=== PATIENT | male | born 1955 | race Caucasian/White ===

== ENCOUNTER 2019-12-17 09:19 | Outpatient (CLI) | payer MEDICARE ==
--- NOTE | 2019-12-17 11:45 | MRI ---
MR of the left shoulder without contrast INDICATION: Left shoulder pain. Rotator cuff syndrome of the left shoulder TECHNIQUE: Sagittal T1, axial and coronal PD fat sat, sagittal and coronal T2 fat sat images were obt ained of the left shoulder. COMPARISON: None. FINDINGS: Motion artifact limits image detail. Rotator cuff: There is a full-thickness tear involving the anterior to mid supraspinatus at the footp rint measuring 1.3 x 1.4 cm. There is partial thickness intratendinous tear extension into the posterior supraspinatus and anterior infraspinatus at the footprint with intratendinous delamination extending up the anterior aspect of the infraspinatus tendon best seen on image 10 of series 5. Glenohumeral joint: Articular cartilage is intact. Glenoid labrum: Intact Biceps tendon and biceps anchor: There is moderate tendinosis of the intra-articular biceps tendon wi th a partial thickness split tear involving the long head of the biceps tendon at the level of the rotator interval and proximal bicipital groove. Acromion clavicular joint: Moderate AC joint osteoarthrosis Subacromial subdeltoid space: No appreciable fluid. Axillary region: No lymphadenopathy. Surrounding shoulder musculature: Normal. No evidence of atrophy or strain. IMPRESSION: 1. Full-thickness tear of the anterior mid supraspinatus at the footprint with intratendinous tear ex tension into the posterior supraspinatus and anterior infraspinatus at the footprint. The intratendinous tear does have a delaminating component and extends up the mid aspect of the anterior infraspinatus tendon. 2. Moderate intra-articular long head of the biceps tendinosis with partial-thickness split tear. 3. Moderate AC joint osteoarthrosis.
== END 2019-12-17 09:20 | disposition home or self-care (01) ==
LOC: BICMRI 09:19
PROVIDERS: ATTEND Family Medicine
DX: M75.102 Unspecified rotator cuff tear or rupture of left shoulder, not specified as traumatic (principal); M75.122 Complete rotator cuff tear or rupture of left shoulder, not specified as traumatic; S46.812A Strain of other muscles, fascia and tendons at shoulder and upper arm level, left arm, initial encounter; M19.012 Primary osteoarthritis, left shoulder; M75.82 Other shoulder lesions, left shoulder

== ENCOUNTER 2020-01-02 07:48 | Outpatient (CLI) | payer MEDICARE ==
[2020-01-02 14:18] LABS: #Eosinphils 0.1 thou/uL (0.0-0.7); #Lymphocytes 1.8 thou/uL (1.20-3.40); #Monocytes 0.6 thou/uL (0.11-0.59); #Neutrophils 4.2 thou/uL (1.40-6.50); %Basophils 0.2 % (0.0-1.0); %Eosinophils 1.3 % (0.0-10.0); %Lymphocytes 27.3 % (21.0-51.0); %Monocytes 9.5 % (0.0-10.0); %Neutrophils 61.7 % (42.0-75.0); Mean Corpuscular HGB CONC 34.9 g/dL (32.0-36.0); Mean Corpuscular Hemoglobin 30.9 pg (27.0-31.0); Mean Corpuscular Volume 88.7 fL (78.0-98.0); Mean Platelet Volume 7.7 fL (7.4-10.4); Platelet Count 274 thou/uL (130-400); RBC Distribution Width 12.1 % (11.5-14.5); Red Blood Cell (RBC) Count 4.52 mill/uL (4.70-6.10); White Blood Cell (WBC) Count 6.7 thou/uL (4.8-10.8)
[2020-01-02 15:17] LABS: Anion Gap 12 mmol/L (10-20); BUN (Urea Nitrogen) 11 mg/dL (8.4-25.7); Calc. Creatinine Clearance 0 mL/min (70-130); Calcium 9.2 mg/dL (7.8-10.44); Carbon Dioxide 27 mmol/L (23-31); Chloride 104 mmol/L (98-107); Estimated GFR-MDRD 80; Glucose 69 mg/dL (80-115); Potassium 3.6 mmol/L (3.5-5.1); Sodium 139 mmol/L (136-145)
== END 2020-01-02 07:49 | disposition home or self-care (01) ==
LOC: LABBT 07:48
PROVIDERS: ATTEND Orthopaedic Surgery
DX: Z01.818 Encounter for other preprocedural examination (principal); M75.102 Unspecified rotator cuff tear or rupture of left shoulder, not specified as traumatic
CPT/HCPCS: 80048; 85025; 93005; 93010

== ENCOUNTER 2020-01-04 08:22 | Day surgery (SDC) | payer MEDICARE ==
[2020-01-02 12:28] VITALS: BMI 25.8
[2020-01-04] MEDS ORDERED: Midazolam HCl 2 mg/2 ml Vial ONE (09:58)
[2020-01-04] MEDS ORDERED: Fentanyl 100 MCG/2 ML VIAL ONE ×2 (09:58→10:15)
[2020-01-04] MEDS ORDERED: Ropivacaine 0.5% HCl/PF (150 MG/30 ML VIAL) ONE (10:09)
[2020-01-04] MEDS ORDERED: Lidocaine 1% PF 5 ML VIAL ONE (10:09)
[2020-01-04] MEDS ORDERED: EPHEDRINE 25 MG/5 ML SYRINGE ONE (10:09)
[2020-01-04] MEDS ORDERED: Rocuronium Bromide 10 MG/ML (10ML VIAL) ONE (10:09)
[2020-01-04] MEDS ORDERED: PHENYLEPHRINE-NS 100 MCG/ML 10 ML SYRINGE ONE (10:09)
[2020-01-04] MEDS ORDERED: Ondansetron PF 4 MG/2 ML Vial ONE (10:09)
[2020-01-04] MEDS ORDERED: PROPOFOL 200 MG/20 ML VIAL ONE (10:09)
[2020-01-04] MEDS ORDERED: Dexamethasone 20 MG/5 ML VIAL ONE (10:09)
[2020-01-04] MEDS ORDERED: Glycopyrrolate 0.2 MG/ML 5 ML SYRINGE ONE (10:09)
[2020-01-04] MEDS ORDERED: Ketorolac Tromethamine 30 MG/ML VIAL ONE (10:09)
[2020-01-04] MEDS ORDERED: Ropivacaine 0.2% HCl/PF (40 MG/20 ML VIAL) ONE (10:09)
[2020-01-04] MEDS ORDERED: Ondansetron PF 4 MG/2 ML Vial IVP PRN (10:34)
[2020-01-04] MEDS ORDERED: Acetaminophen 325 MG TAB PO PRN (10:34)
[2020-01-04] MEDS ORDERED: Promethazine HCl 25 MG/ML VIAL IM PRN (10:34)
[2020-01-04] MEDS ORDERED: HYDROcodone/Acetaminophen 10/325 mg Tablet PO PRN ×2 (10:34)
[2020-01-04] MEDS ORDERED: Zolpidem Tartrate 5 MG TAB PO PRN (10:34)
[2020-01-04] MEDS ORDERED: traMADol HCl 50 MG TAB PO PRN ×2 (10:34)
[2020-01-04] MEDS ORDERED: Ropivacaine 0.2% 550 ML 550 ML NERVE BLCK SCH (10:34)
[2020-01-04] MEDS ORDERED: Fentanyl 100 MCG/2 ML VIAL IV PRN (10:35)
[2020-01-04] MEDS ORDERED: Lidocaine 1% w/Epinephrine 1:100K 20 ML VIAL ONE (11:08)
[2020-01-04] MEDS ORDERED: Phenylephrine 10 MG/ML VIAL ONE (11:38)
[2020-01-04] MEDS ORDERED: Ketorolac Tromethamine 30 MG/ML VIAL IVP SCH (12:00)
--- NOTE | 2020-01-07 01:30 | OP ---
DATE OF PROCEDURE: 01/04/2020 POSTOPERATIVE DIAGNOSIS: Left shoulder impingement rotator cuff tear, biceps tendon tear. POSTOPERATIVE DIAGNOSIS: Left shoulder impingement rotator cuff tear, biceps tendon tear. PROCEDURE PERFORMED: 1. Left shoulder arthroscopy with subacromial decompression. 2. Left shoulder arthroscopic rotator cuff repair. 3. Left shoulder open biceps tenodesis. RISK ASSESSMENT CONSULTANT: Arvin Singh PA-C IMPLANTS: We used one titanium rotator cuff anchor one 4.75 BioComposite SwiveLock and one 7 x 23 BioComposite Bio-Tenodesis screw. ANESTHESIA: He had general anesthetic. He had a preoperative block. He did go to Recovery in stable condition. INDICATIONS: A 64-year-old active male, who comes in complaining of inability to use left arm especially in the overhead position, weakness and pain. At this time, he opted to have surgery. DESCRIPTION OF PROCEDURE: After all appropriate consent forms were explained and signed, he was taken to the operative room at this time, was given general anesthetic. Once the level of anesthesia was appropriate, he was placed in the right lateral decubitus position. All bony prominences well padded. Axillary roll was placed into the right axilla and a nielsen bag was inflated to hold in its position. The arm was then taken through a full range of motion and suspended with 15 pounds in standard surgical fashion. The left shoulder and upper extremity were then prepped and draped in a standard surgical fashion. Bony anatomical landmarks were drawn out. The subacromial space was infiltrated with local with epinephrine. Posterior portal was then established. Scope was placed into the shoulder joint. Anterior working portal was then made using a needle localization technique. Diagnostic arthroscopy commenced in the glenohumeral joint. The articular surface of the humeral head and glenoid were in excellent condition. There were no loose bodies noted. There was a significant tear of the rotator cuff and the undersurface of the cuff was debrided with a shaver. The subscapularis was intact. Biceps tendon was found to be unstable and torn with intertendinous tearing of the articular portion of the tendon itself and the anterior, inferior, and posterior labrum overall in good condition. At this time, a grasper was placed at the joint. An 18-gauge needle was used to penetrate through the biceps tendon and place a stitch. We then removed the biceps tendon using the SERFAS energy probe. The scope was replaced in subacromial space. Lateral working portal was made. Bony decompression was performed and the right rotator cuff was freshened up prior to repair. The insertion on the tuberosity was cleared off any soft tissue and loosely decorticated with the shaver. A PassPort was placed laterally and at this time we did multiple [id number] closing stitches to close our front to back portion of the rotator cuff tear. Titanium anchor was then placed into the bone and using the Scorpion device, the sutures were placed in mattress fashion through the rotator cuff itself. Two sets stitches were then tied. All four stitches were then brought laterally down the arm and placed through a 4.75 BioComposite SwiveLock for double row repair. This gave an excellent repair of our tear. Scope was removed. Shoulder was drained. A small incision was made down through skin. Bovie was used to coagulate any brisk venous bleeding. At this time, the deltoid fascia was opened sharply. We then split the deltoid in line with its fibers using the finger dissection and once we got down to transverse humeral ligament, this was opened up and the biceps tendon was pulled into the wound. A good portion of the biceps tendon was then sutured. The intraarticular torn portion was removed. We then placed our pin drilled with a 7 mm reamer to a depth of 25 and placed a 7 x 23 BioComposite Bio-Tenodesis screw without any problem. Sutures were tied over top of this and this completed our repair. We then thoroughly irrigated and dried this wound. We then placed multiple Vicryl sutures to close our deltoid fascia, 2-0 Vicryl nylon sutures to close skin. Each portal was closed with nylon sutures as well. Bulky sterile dressing was applied. Patient was then awakened, taken to recovery room in stable condition. All counts were correct at the end of the case and he did receive preoperative IV antibiotics. Job ID: [id number]
== END 2020-01-04 14:45 | disposition home or self-care (01) ==
LOC: SDC 08:22
PROVIDERS: ATTEND Orthopaedic Surgery
PROC: 0LQ24ZZ Repair Left Shoulder Tendon, Percutaneous Endoscopic Approach (ICD-10-PCS; principal; 2020-01-04)
PROC: 0LS24ZZ Reposition Left Shoulder Tendon, Percutaneous Endoscopic Approach (ICD-10-PCS; 2020-01-04)
PROC: 0RNK4ZZ Release Left Shoulder Joint, Percutaneous Endoscopic Approach (ICD-10-PCS; 2020-01-04)
DX: M75.102 Unspecified rotator cuff tear or rupture of left shoulder, not specified as traumatic (principal); M75.42 Impingement syndrome of left shoulder; S46.112A Strain of muscle, fascia and tendon of long head of biceps, left arm, initial encounter; I10 Essential (primary) hypertension; E78.5 Hyperlipidemia, unspecified; Z98.890 Other specified postprocedural states; Z87.891 Personal history of nicotine dependence; Z79.899 Other long term (current) drug therapy
CPT/HCPCS: 29826; 29827; 29828; A4306; C1713 ×2; J0690; J1100; J1885; J2001; J2250; J2370; J2405; J2704; J2795; J3010